=== PATIENT | male | born 1945 | race Caucasian/White ===

== ENCOUNTER → 2017-09-21 16:14 | Outpatient (CLI) | payer MEDICARE, OTHER ==
[2014-01-22 22:42] VITALS: BMI 36.2
[~2017-09-21 16:14] MED LIST: ASPIRIN325 MG PO; CETIRIZINE HCL5 M1 PO; CITRATE OF MAG300 ML PO; COLACE100 MG PO; FLUTICASONE PRO16 GM NS; MEVACOR20 MG PO; MILK OF MAGNESI30 ML PO; NUCYNTA50 MG PO; OSMOPREP TABLE32 TAB PO; SPIRIVA18 MCG INH; SYNTHROID150 MCG PO; ULTRAM50 MG PO; VENTOLIN HFA18 GM INH
== END | disposition home or self-care (01) ==
LOC: D.CT 16:14
DX: I71.4 Abdominal aortic aneurysm, without rupture (principal)

== ENCOUNTER → 2019-01-24 15:20 | Outpatient (CLI) | payer MEDICARE, OTHER ==
[2014-01-22 22:42] VITALS: BMI 36.2
== END | disposition home or self-care (01) ==
LOC: D.CT 15:20
PROVIDERS: ATTEND Internal Medicine Cardiovascular Disease
DX: I71.4 Abdominal aortic aneurysm, without rupture (principal)

== ENCOUNTER → 2020-04-23 11:42 | Outpatient (CLI) | payer MEDICARE, OTHER ==
[2014-01-22 22:42] VITALS: BMI 36.2
== END | disposition home or self-care (01) ==
LOC: D.CT 01-23 10:30
PROVIDERS: ATTEND Internal Medicine Cardiovascular Disease
DX: I71.4 Abdominal aortic aneurysm, without rupture (principal)